=== PATIENT | female | born 1950 | race Caucasian/White ===

== ENCOUNTER 2024-10-15 09:55 | Inpatient (IN) | payer MEDICARE, MEDICAID, SELFPAY ==
[2024-10-15] VITALS (34 sets, daily range): BP systolic 99–125; BP diastolic 59–93; PULSE 81–106; TEMP 36.4–37.2; O2SAT 91–99; BMI 48.1; BMI 45.4
--- NOTE | 2024-10-15 10:35 | ECG_ITS ---
[facility] Test Date: 2024-10-15 Pat Name: MARILY SOTO Department: Room: - Gender: Female Network Announcer: : 1950 Requested By: [id number] Order Number: [id number] Reading MD: ADITYA POWER M.D. Measurements Intervals Morgan Rate: 87 P: 39 SC: 174 QRS: 24 QRSD: 86 T: 49 QT: 346 QTc: 391 Interpretive Statements 1100 Sinus rhythm 4068 Nonspecific Twave abnormality 9130 borderline ECG ARTIFACT IN LEAD(S) No previous ECG available for comparison Electronically Signed On 10-16-2024 6:24:59 EST by ADITYA POWER M.D.
--- NOTE | 2024-10-15 10:39 | ED.GENADUL1 ---
HPI HPI - General Adult General Chief complaint: Fall Stated complaint: FALL Time Seen by Provider: 10/15/24 09:57 Source: patient Mode of arrival: ambulance History of Present Illness HPI narrative: Patient presents to the ED after a fall. She states she was at her assisted living facility and she was trying to reach for her towel and gather all her stuff for the bathroom when she lost her footing and fell onto her left side. She said she hit her head against the wall. No loss of consciousness. She complains of left hip pain and left knee pain as well as left wrist pain. She does report that she has pain to the left side of her head but no loss of consciousness. EMS reported that the patient said she had gotten dizzy prior to the fall but the patient states she was not dizzy prior to the fall. Patient denies any chest pain or shortness of breath. She is alert and oriented answering questions appropriately. Patient states she has chronic arthritis and does have joint pain as well but this seems worse since her fall. Related Data Home Medications ?Medication ?Instructions ?Recorded ?Confirmed acetaminophen 325 mg capsule 650 mg PO Q6H PRN fever or pain 10/15/24 10/15/24 aspirin 81 mg capsule 81 mg PO DAILY 10/15/24 10/15/24 atenolol 25 mg tablet 25 mg PO DAILY 10/15/24 10/15/24 cholecalciferol (vitamin D3) 50 50 mcg PO DAILY 10/15/24 10/15/24 mcg (2,000 unit) tablet (D3 DOTS) duloxetine 60 mg capsule,delayed 60 mg PO DAILY 10/15/24 10/15/24 release (Cymbalta) furosemide 20 mg tablet 20 mg PO DAILY 10/15/24 10/15/24 isosorbide mononitrate 30 mg 30 mg PO DAILY 10/15/24 10/15/24 tablet,extended release 24 hr lidocaine 4 % topical patch 1 patch topical DAILY PRN pain 10/15/24 10/15/24 (Lidocaine Pain Relief) losartan 25 mg tablet (Cozaar) 25 mg PO DAILY 10/15/24 10/15/24 metformin 500 mg tablet 500 mg PO DAILY 10/15/24 10/15/24 miconazole nitrate 2 % topical 1 applic topical BID 10/15/24 10/15/24 cream (Antifungal (miconazole)) multivitamin (Daily Multi-Vitamin 1 tab PO DAILY 10/15/24 10/15/24 tablet) nitroglycerin 0.4 mg sublingual 0.4 mg sublingual Q5M 10/15/24 10/15/24 tablet oxybutynin chloride 10 mg 10 mg PO DAILY 10/15/24 10/15/24 tablet,extended release 24 hr rosuvastatin 10 mg tablet (Crestor) 10 mg PO DAILY 10/15/24 10/15/24 spironolactone 25 mg tablet 25 mg PO DAILY 10/15/24 10/15/24 (Aldactone) Allergies Allergy/AdvReac Type Severity Reaction Status Date / Time naproxen Allergy Severe Rash Verified 10/15/24 10:03 Penicillins Allergy Severe Rash Verified 10/15/24 10:03 Opioid HPI Opioid Management Most Recent Opioid Data: No Data to Display Review of Systems ROS Status of ROS 10 or more systems reviewed and unremarkable except as noted in history and below PFSH PFSH Social History Little interest or pleasure in doing things: not at all Feeling down, depressed, or hopeless: not at all Exam Narrative Exam Narrative: Time Seen: [] Vital Signs: [Per nurse's notes.] General: [Alert] mild distress due to pain in the left leg Skin: [Warm, dry, no rash.] Head: [Normocephalic, hematoma on the left parietal region of the scalp Neck: [Supple, trachea midline.] Eye: [Pupils are equal, round and reactive to light, extraocular movements are intact, normal conjunctiva.] Ears, nose, mouth and throat: oral mucosa moist. Cardiovascular: [Regular rate and rhythm, no murmur.] Respiratory: [Lungs are clear to auscultation, respirations are non-labored, breath sounds are equal.] Chest wall: [No tenderness, no deformity.] Gastrointestinal: [Soft, nontender, non distended, normal bowel sounds.] MSK: 5 out of 5 muscle strength x 4 extremities no calf pain or edema. Patient has chronic skin changes in the lower extremities due to poor circulation. Patient has tenderness to palpation in the left hip left distal femur and left knee. Mild tenderness to the left wrist. Lymphatics: [No lymphadenopathy.] Psychiatric: [Cooperative, appropriate mood & affect.] Neurological: [Alert and oriented to person, place, time, and situation, no focal neurological deficit observed.] Constitutional Vital Signs, click to edit/add: Last Vital Signs Temp 98.9 F 10/15/24 09:57 Pulse 90 10/15/24 10:20 Resp 18 10/15/24 10:20 BP 125/93 H 10/15/24 10:04 Pulse Ox 96 10/15/24 10:20 O2 Del Method Room Air 10/15/24 09:57 Course Vital Signs Vital signs: Vital Signs Temperature 98.9 F 10/15/24 09:57 Pulse Rate 92 H 10/15/24 09:57 Respiratory Rate 22 H 10/15/24 09:57 Blood Pressure 99/63 10/15/24 09:57 Pulse Oximetry 97 10/15/24 09:57 Oxygen Delivery Method Room Air 10/15/24 09:57 Temperature 98.9 F 10/15/24 09:57 Pulse Rate 90 10/15/24 10:20 Respiratory Rate 18 10/15/24 10:20 Blood Pressure 125/93 H 10/15/24 10:04 Pulse Oximetry 96 10/15/24 10:20 Oxygen Delivery Method Room Air 10/15/24 09:57 Medical Decision Making MDM Narrative Medical decision making narrative: Patient CT scan shows left pubic rami fractures. Patient is currently only in assisted living at her facility and will definitely need increased level of care now. She also had dizziness prior to her fall and she has had a lot of pain in her hip and leg since the fall. Patient will be admitted for pain control evaluation of the dizziness as well as case management consultation to most likely increase her level of care at a rehab facility. Patient is comfortable with care plan for admission. Dr. Jacques will be admitting. Patient is stable in ED. Differential Diagnosis Differential Diagnosis: Fracture sprain strain bleed syncope Medical Records Medical records reviewed: Yes I reviewed the patient's medical records Lab Data Lab results reviewed: Yes I reviewed the patient's lab results Labs: Lab Results 10/15/24 Range/Units 10:43 WBC 13.5 H (4.0-11.0) 10^3/uL RBC 4.37 (4.20-5.40) 10^6/uL Hgb 13.4 (12.0-16.0) g/dL Hct 41.2 (36.0-48.0) % MCV 94.3 (81.0-99.0) fL MCH 30.7 (26.7-34.0) pg MCHC 32.5 (29.9-35.2) g/dL RDW 13.4 (11.0-15.0) % Plt Count 276 (150-450) 10^3/uL MPV 8.6 L (9.5-13.5) fL Neut % (Auto) 82.2 H (43.0-75.0) % Lymph % (Auto) 8.5 L (20.5-60.0) % Bowman % (Auto) 6.1 (1.7-12.0) % Eos % (Auto) 1.9 (0.9-7.0) % Baso % (Auto) 0.7 (0.2-2.0) % Neut # (Auto) 11.1 H (1.4-6.5) 10^3/uL Lymph # (Auto) 1.2 (1.2-3.8) 10^3/uL Bowman # (Auto) 0.8 (0.3-0.8) 10^3/uL Eos # (Auto) 0.3 (0.0-0.7) 10^3/uL Baso # (Auto) 0.1 (0.0-0.1) 10^3/uL Abs Immat Gran (auto) 0.08 H (0.00-0.03) 10^3/uL Imm/Tot Granulo (auto) 0.6 H (0.0-0.5) % Sodium 141 (136-145) mmol/L Potassium 4.1 (3.5-5.1) mmol/L Chloride 104 (98-107) mmol/L Carbon Dioxide 25.5 (21.0-32.0) mmol/L Anion Gap 15.6 BUN 16.0 (7.0-18.0) mg/dL Creatinine 1.01 (0.55-1.02) mg/dL Est GFR ( Amer) >60 (>=60 mL/min/1.73m^2) Est GFR (Non-Af Amer) 53 L (>=60 mL/min/1.73m^2) BUN/Creatinine Ratio 15.8 Glucose 103 (74-106) mg/dL Calcium 10.0 (8.5-10.1) mg/dL Total Bilirubin 1.0 (0.2-1.0) mg/dL AST 19 (15-37) U/L ALT 11 L (14-59) U/L Alkaline Phosphatase 101 (46-116) U/L Troponin I High Sens 7.3 (4.0-51.3) pg/mL Total Protein 7.6 (6.4-8.2) g/dL Albumin 3.4 (3.4-5.0) g/dL Globulin 4.2 g/dL Albumin/Globulin Ratio 0.[address] scan - head: Attestation: I have reviewed the pertinent imaging results. ECG Data Attestation: I personally reviewed and interpreted this ECG as follows: Interpretation: EKG INTERPRETATION Time: [] 1003 Rate: [] 87 Rhythm: _ [] Sinus rhythm ST segments: _ [] No acute ST elevation or depression T waves: _ [] Ectopy: _ [] P wave/UT interval: _ [] QRS interval: _ [] QT interval: _ [] Comparison: _ [] Comparison EKG date: [] Performed by: [self] Discharge Plan Discharge Chief Complaint: Fall Clinical Impression: Closed fracture of pubic ramus, Fall, Dizziness Patient Disposition: Admitted As Inpatient Time of Disposition Decision: 13:29 Condition: Fair Prescriptions / Home Meds: No Action acetaminophen 325 mg capsule 650 mg PO Q6H PRN (Reason: fever or pain) miconazole nitrate [Antifungal (miconazole)] 2 % cream 1 applic topical BID aspirin 81 mg capsule 81 mg PO DAILY atenolol 25 mg tablet 25 mg PO DAILY duloxetine [Cymbalta] 60 mg capsule,delayed release(DR/EC) 60 mg PO DAILY furosemide 20 mg tablet 20 mg PO DAILY isosorbide mononitrate 30 mg tablet extended release 24 hr 30 mg PO DAILY lidocaine [Lidocaine Pain Relief] 4 % adhesive patch,medicated 1 patch topical DAILY PRN (Reason: pain) losartan [Cozaar] 25 mg tablet 25 mg PO DAILY metformin 500 mg tablet 500 mg PO DAILY multivitamin [Daily Multi-Vitamin] Tablet 1 tab PO DAILY nitroglycerin 0.4 mg tablet, sublingual 0.4 mg sublingual Q5M Rx Instructions: do not exceed 3 doses per episode oxybutynin chloride 10 mg tablet extended release 24hr 10 mg PO DAILY rosuvastatin [Crestor] 10 mg tablet 10 mg PO DAILY spironolactone [Aldactone] 25 mg tablet 25 mg PO DAILY cholecalciferol (vitamin D3) [D3 DOTS] 50 mcg (2,000 unit) tablet 50 mcg PO DAILY Print Language: Romansh Referrals: MARISELA SANCHEZ [Primary Care Provider] - 1 week
[2024-10-15 10:50] LABS: Basophils Absolute Auto 0.1 10^3/uL (0.0-0.1); Basophils Percent Auto 0.7 % (0.2-2.0); Eosinophils Absolute Auto 0.3 10^3/uL (0.0-0.7); Eosinophils Percent Auto 1.9 % (0.9-7.0); Hematocrit 41.2 % (36.0-48.0); Hemoglobin 13.4 g/dL (12.0-16.0); Immature Granulocytes Abs Auto 0.08 10^3/uL (0.00-0.03); Immature Granulocytes Pct Auto 0.6 % (0.0-0.5); Lymphocytes Absolute Auto 1.2 10^3/uL (1.2-3.8); Lymphocytes Percent Auto 8.5 % (20.5-60.0); Mean Corpuscular HGB Conc 32.5 g/dL (29.9-35.2); Mean Corpuscular Hemoglobin 30.7 pg (26.7-34.0); Mean Corpuscular Volume 94.3 fL (81.0-99.0); Mean Platelet Volume 8.6 fL (9.5-13.5); Monocytes Absolute Auto 0.8 10^3/uL (0.3-0.8); Monocytes Percent Auto 6.1 % (1.7-12.0); Neutrophils Absolute Auto 11.1 10^3/uL (1.4-6.5); Neutrophils Percent Auto 82.2 % (43.0-75.0); Platelet Count 276 10^3/uL (150-450); Red Blood Count 4.37 10^6/uL (4.20-5.40); Red Cell Distribution Width 13.4 % (11.0-15.0); White Blood Count 13.5 10^3/uL (4.0-11.0)
[2024-10-15] MEDS: MORPHINE SULFATE 4 MG/ML VIAL IV ×2 (10:51→14:30)
[2024-10-15] MEDS: 0.9 % SODIUM CHLORIDE 500 ML IV (10:51)
[2024-10-15 11:10] LABS: Alanine Aminotransferase 11 U/L (14-59); Albumin Globulin Ratio 0.8; Albumin Level 3.4 g/dL (3.4-5.0); Alkaline Phosphatase 101 U/L (46-116); Anion Gap 15.6; Aspartate Amino Transferase 19 U/L (15-37); BUN Creatinine Ratio 15.8; Carbon Dioxide 25.5 mmol/L (21.0-32.0); Chloride 104 mmol/L (98-107); Estimated GFR (African America >60 (>=60 mL/min/1.73m^2); Estimated GFR (Non-African Ame 53 (>=60 mL/min/1.73m^2); Globulin 4.2 g/dL; Glucose 103 mg/dL (74-106); Potassium 4.1 mmol/L (3.5-5.1); Sodium 141 mmol/L (136-145); Total Protein 7.6 g/dL (6.4-8.2)
[2024-10-15 11:13] LABS: Troponin I High Sensitivity 7.3 pg/mL (4.0-51.3)
--- NOTE | 2024-10-15 12:56 | PC.NURSE ---
telegraphic typewriter operator and another RN assisted pt onto bedpan at this time. pt was able to urinate. daughter at bedside. Skin care completed, and new brief placed.
--- NOTE | 2024-10-15 13:06 | SWNOTE1 ---
GILMAR received a call from ED. Pt lives at [facility]. This is an assisted living facility. Dr. Jacques is asking ED doctor if we could increase her level of care at [place]. GILMAR did advise that [place] is like her home, it is not a snf. Many AL's do have different levels of care, but she has to be fairly independent to live in an AL. SW to call and let ED doctor know. GILMAR called 3 x and left a message for the computer systems security administrator, waiting for call back.
--- NOTE | 2024-10-15 13:15 | SWNOTE1 ---
GILMAR spoke with Rica at the [facility] and she stated pt is receiving the highest level of care, which is the advanced level. SW called ED doctor and updated her.
--- NOTE | 2024-10-15 15:05 | PC.NURSE ---
pt aware of admission and roomassignment. pt and daughter deny needs prior to admission. pt transported by this RN to [facility] 202. bedside report given to Maggie RO, all questions answered.
--- NOTE | 2024-10-15 17:55 | P.HP_ITS ---
HPI H&P: HPI History of Present Illness Chief complaint: FALL, PELVIC FRACTURES, DIZZINESS, FALL Narrative: Patient was seen and evaluated in the emergency room after a fall, she had a near syncopal event. Describes some spinning type dizziness but more tunnel vision type dizziness as well this was twice upon once upon standing the other time not on the Can you she was on the floor, in the emergency room found to have pubic ramus fracture but also significant lactic acidosis and leukocytosis, workup for causes ongoing Opioid HPI Opioid Management Most Recent Pain and Opioid Data: Last Pain Scale 4 10/15/24 17:50 10/15/24 Last Pain Assessment 10/15/24 17:50 Last MAR Pain Assessment 10/15/24 14:30 Last ORT Total Score 0 10/15/24 15:02 10/15/24 Last ORT Risk Category Low Risk 10/15/24 15:02 10/15/24 PFS PFS Medical History (Updated 10/15/24 @ 15:48 by Maggie Ortiz) Anxiety ?F41.9 - Anxiety disorder, unspecified (ICD-10) History of broken nose ?Z87.81 - Personal history of (healed) traumatic fracture (ICD-10) Hypertension ?I10 - Essential (primary) hypertension (ICD-10) Arthritis ?M19.90 - Unspecified osteoarthritis, unspecified site (ICD-10) Surgical History (Updated 10/15/24 @ 15:48 by Maggie Ortiz) Rotator cuff arthropathy of left shoulder ?M12.812 - Other specific arthropathies, not elsewhere classified, left shoulder (ICD-10) 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 - Other specified disorders of the skin and subcutaneous tissue (ICD- 10) H/O heart artery stent ?Z95.5 - Presence of coronary angioplasty implant and graft (ICD-10) Hernia of abdominal wall ?K43.9 - Ventral hernia without obstruction or gangrene (ICD-10) Family History (Updated 10/15/24 @ 15:37 by Maggie Ortiz) Father Family history of myocardial infarction Mother Family history of diabetes mellitus Social History (Updated 10/15/24 @ 15:47 by Maggie Ortiz) Within the past year, how often did you have a drink containing alcohol: never Score interpretation: A score less than 3 is consistent with normal alcohol consumption. Smoking status: Former smoker Non-prescribed substance use: denies use Previous occupational history: retired Highest level of school completed/degree received: some college, no degree Are you now , , , , never or living with a partner: Little interest or pleasure in doing things: not at all Feeling down, depressed, or hopeless: not at all Feel stressed/tense/nervous/anxious/difficulty sleeping: only a little Meds Home Medications and Allergies Home Medications ?Medication ?Instructions ?Recorded ?Confirmed ?Type acetaminophen 325 mg capsule 650 mg PO Q6H PRN fever or pain 10/15/24 10/15/24 History acetaminophen 650 mg 650 mg PO DAILY 10/15/24 10/15/24 History tablet,extended release (Tylenol Arthritis Pain) aspirin 81 mg chewable tablet 1 tab PO DAILY 10/15/24 10/15/24 History atenolol 25 mg tablet 25 mg PO DAILY 10/15/24 10/15/24 History cholecalciferol (vitamin D3) 25 25 mcg PO DAILY 10/15/24 10/15/24 History mcg (1,000 unit) tablet duloxetine 60 mg capsule,delayed 60 mg PO DAILY 10/15/24 10/15/24 History release (Cymbalta) furosemide 20 mg tablet 20 mg PO DAILY 10/15/24 10/15/24 History isosorbide mononitrate 30 mg 30 mg PO DAILY 10/15/24 10/15/24 History tablet,extended release 24 hr lidocaine 4 % topical patch 1 patch topical DAILY 10/15/24 10/15/24 History (Lidocaine Pain Relief) losartan 25 mg tablet (Cozaar) 25 mg PO DAILY 10/15/24 10/15/24 History metformin 500 mg tablet,extended 500 mg PO DAILY 10/15/24 10/15/24 History release 24 hr miconazole nitrate 2 % topical 1 applic topical BID 10/15/24 10/15/24 History cream (Antifungal (miconazole)) multivitamin (Daily Multi-Vitamin 1 tab PO DAILY 10/15/24 10/15/24 History tablet) nitroglycerin 0.4 mg sublingual 0.4 mg sublingual Q5M PRN chest 10/15/24 10/15/24 History tablet pain oxybutynin chloride 10 mg 10 mg PO DAILY 10/15/24 10/15/24 History tablet,extended release 24 hr rosuvastatin 10 mg tablet (Crestor) 10 mg PO DAILY 10/15/24 10/15/24 History spironolactone 25 mg tablet 25 mg PO DAILY 10/15/24 10/15/24 History (Aldactone) Allergies Allergy/AdvReac Type Severity Reaction Status Date / Time naproxen Allergy Severe Rash Verified 10/15/24 10:03 Penicillins Allergy Severe Rash Verified 10/15/24 10:03 Exam Constitutional Vital Signs, click to edit/add: Last Vital Signs Temp 98.7 F 10/15/24 15:02 Pulse 84 10/15/24 15:02 Resp 20 10/15/24 15:02 BP 111/59 10/15/24 15:02 Pulse Ox 95 10/15/24 15:02 O2 Del Method Room Air 10/15/24 15:02 Documenting provider has reviewed patient's vital signs: yes Common normals: no apparent distress Lymph Lymphatic: no lymphadenopathy noted Respiratory Common normals: normal respiratory effort and clear to auscultation bilaterally Cardio Common normals: regular rate and regular rhythm Extremity Common normals: normal to inspection Results Labs Labs: Short CBC 10/15/24 Range/Units 10:43 WBC 13.5 H (4.0-11.0) 10^3/uL Hgb 13.4 (12.0-16.0) g/dL Hct 41.2 (36.0-48.0) % Plt Count 276 (150-450) 10^3/uL BMP 10/15/24 10:43 Sodium 141 Potassium 4.1 Chloride 104 Carbon Dioxide 25.5 BUN 16.0 Creatinine 1.01 Glucose 103 Calcium 10.0 Liver Function 10/15/24 Range/Units 10:43 Total Bilirubin 1.0 (0.2-1.0) mg/dL AST 19 (15-37) U/L ALT 11 L (14-59) U/L Alkaline Phosphatase 101 (46-116) U/L Albumin 3.4 (3.4-5.0) g/dL Assessment and Plan Assessment and Plan (1) Dizziness: (2) Fall: (3) Closed fracture of pubic ramus: Plan Admission findings: Sinus tachycardia, respiratory distress, leukocytosis, positive lactic acidosis, other testing for flu and heart failure and urinalysis are pending as causes for the lactic acidosis which is resulted in syncope Lactic acidosis-uncertain etiology, possible acute UTI resulting in the syncopal episode-urinalysis is pending, will treat if positive Syncopal episode-telemetry, consider carotid Dopplers and echocardiogram depending on how she feels overnight tonight Pubic ramus fracture-weightbearing as tolerated-will need placement for rehab pending outcome of the treatment and evaluation for the lactic acidosis Hypertension-continue with home medications Depression-continue with home medications Coronary artery disease-continue with home medications Diabetes mellitus-insulin sliding scale Admission status: Patient with syncopal episode and significant lactic acidosis and leukocytosis, workup is ongoing, medically necessary treatment will span 2 midnights, inpatient status
[2024-10-15 18:53] LABS: Lactate/Lactic Acid 2.6 mmol/L (0.4-2.0)
[2024-10-15] MEDS: TRAMADOL HCL 50 MG TABLET PO (19:56)
[2024-10-15 20:02] LABS: Glucometer 113 mg/dL (74-106)
[2024-10-16] VITALS (22 sets, daily range): BP systolic 108–124; BP diastolic 67–78; PULSE 70–95; TEMP 36.3–36.8; O2SAT 86–97
[2024-10-16] MEDS: NYSTATIN 100,000 UNITS/GRAM CREAM 15 GM TUBE 1 APPLIC TOPICAL ×3 (01:15→21:25)
[2024-10-16] MEDS: MORPHINE SULFATE 2 MG/ML SYRINGE IV ×2 (01:17→21:24)
[2024-10-16] MEDS: ONDANSETRON PF 4 MG/2 ML VIAL IV (01:17)
[2024-10-16] MEDS: TRAMADOL HCL 50 MG TABLET PO ×3 (03:16→16:07)
[2024-10-16 05:26] LABS: Basophils Absolute Auto 0.1 10^3/uL (0.0-0.1); Basophils Percent Auto 0.7 % (0.2-2.0); Eosinophils Absolute Auto 0.4 10^3/uL (0.0-0.7); Eosinophils Percent Auto 4.1 % (0.9-7.0); Hematocrit 37.4 % (36.0-48.0); Hemoglobin 12.2 g/dL (12.0-16.0); Immature Granulocytes Abs Auto 0.03 10^3/uL (0.00-0.03); Immature Granulocytes Pct Auto 0.3 % (0.0-0.5); Lymphocytes Absolute Auto 1.2 10^3/uL (1.2-3.8); Lymphocytes Percent Auto 12.9 % (20.5-60.0); Mean Corpuscular HGB Conc 32.6 g/dL (29.9-35.2); Mean Corpuscular Hemoglobin 30.7 pg (26.7-34.0); Mean Platelet Volume 8.9 fL (9.5-13.5); Monocytes Percent Auto 10.1 % (1.7-12.0); Neutrophils Absolute Auto 6.8 10^3/uL (1.4-6.5); Neutrophils Percent Auto 71.9 % (43.0-75.0); Platelet Count 248 10^3/uL (150-450); Red Blood Count 3.98 10^6/uL (4.20-5.40); Red Cell Distribution Width 13.6 % (11.0-15.0); White Blood Count 9.4 10^3/uL (4.0-11.0)
[2024-10-16 05:39] LABS: Anion Gap 12.6; Calcium 9.3 mg/dL (8.5-10.1); Carbon Dioxide 26.7 mmol/L (21.0-32.0); Chloride 102 mmol/L (98-107); Estimated GFR (African America >60 (>=60 mL/min/1.73m^2); Estimated GFR (Non-African Ame 54 (>=60 mL/min/1.73m^2); Glucose 111 mg/dL (74-106); Potassium 4.3 mmol/L (3.5-5.1); Sodium 137 mmol/L (136-145)
--- NOTE | 2024-10-16 06:38 | P.PN_ITS ---
Progress Note: Subjective Subjective Interval history: Pain up some - now with hypoxia Exam Constitutional Vital Signs, click to edit/add: Last Vital Signs Temp 98.2 F 10/16/24 03:56 Pulse 76 10/16/24 06:00 Resp 20 10/16/24 03:56 BP 114/71 10/16/24 03:56 Pulse Ox 94 L 10/16/24 06:00 O2 Del Method Nasal Cannula 10/16/24 03:56 O2 Flow Rate 1 10/16/24 03:56 Documenting provider has reviewed patient's vital signs: yes Common normals: no apparent distress Lymph Lymphatic: no lymphadenopathy noted Respiratory Common normals: normal respiratory effort, no retractions and clear to auscultation bilaterally Cardio Common normals: regular rate, regular rhythm and no murmurs Extremity Common normals: normal to inspection Progress Note: Objective Labs Labs: Short CBC 10/15/24 10/16/24 Range/Units 10:43 04:49 WBC 13.5 H 9.4 (4.0-11.0) 10^3/uL Hgb 13.4 12.2 (12.0-16.0) g/dL Hct 41.2 37.4 (36.0-48.0) % Plt Count 276 248 (150-450) 10^3/uL BMP 10/15/24 10/16/24 10:43 04:49 Sodium 141 137 Potassium 4.1 4.3 Chloride 104 102 Carbon Dioxide 25.5 26.7 BUN 16.0 14.0 Creatinine 1.01 1.00 Glucose 103 111 H Calcium 10.0 9.3 Liver Function 10/15/24 Range/Units 10:43 Total Bilirubin 1.0 (0.2-1.0) mg/dL AST 19 (15-37) U/L ALT 11 L (14-59) U/L Alkaline Phosphatase 101 (46-116) U/L Albumin 3.4 (3.4-5.0) g/dL Progress Note: A&P Assessment and Plan (1) Dizziness: (2) Fall: (3) Closed fracture of pubic ramus: Plan Admission findings: Sinus tachycardia, respiratory distress, leukocytosis, positive lactic acidosis, other testing for flu and heart failure and urinalysis are pending as causes for the lactic acidosis which is resulted in syncope Lactic acidosis-uncertain etiology, possible acute UTI resulting in the syncopal episode-urinalysis is still pending, will treat if positive Acute hypoxia - likely related to narcotics - d/c those - Syncopal episode-telemetry, consider carotid Dopplers and echocardiogram depending on how she feels overnight tonight - no more events Pubic ramus fracture-weightbearing as tolerated-will need placement for rehab pending outcome of the treatment and evaluation for the lactic acidosis Hypertension-continue with home medications Depression-continue with home medications Coronary artery disease-continue with home medications Diabetes mellitus-insulin sliding scale Admission status: Patient with syncopal episode and significant lactic acidosis and leukocytosis, workup is ongoing, medically necessary treatment will span 2 midnights, inpatient status Urinary Catheter Management Urinary Catheter Management Pure Wick: Cath placed during this visit: no
[2024-10-16 07:32] LABS: Glucometer 118 mg/dL (74-106)
[2024-10-16 07:45] LABS: Bilirubin Urine NEGATIVE (NEGATIVE); Blood Urine NEGATIVE (NEGATIVE); Clarity Urine CLEAR (CLEAR); Color Urine YELLOW (YELLOW); Glucose Urine UA NEGATIVE (NEGATIVE); Ketones Urine 15 mg/dL (NEGATIVE); Leukocyte Esterase Urine SMALL (NEGATIVE); Nitrite Urine NEGATIVE (NEGATIVE); Protein Urine NEGATIVE (NEG/TRACE); Urobilinogen Urine 0.2 EU/dL (0.2-1.0); pH Urine 5.5 (5.0-9.0)
[2024-10-16 07:54] LABS: Bacteria Urine TRACE #/HPF (NONE SEEN); RBC Urine NONE SEEN #/HPF (0-2)
[2024-10-16 07:55] LABS: Cast Seen? NONE SEEN #/LPF (NONE SEEN); Crystals Seen? None Seen #/HPF (None Seen); Mucus Urine NONE SEEN (NONE SEEN); Squamous Epithelial Cell Urine FEW #/LPF (NONE/RARE); Urine Culture Indicated NO
--- NOTE | 2024-10-16 08:55 | CM.NOTE ---
Rounds made with Dr. Jacques, discussed with pt findings and plan of care. Pt continues to c/o pain, Dr. Jacques will readjust pain medications. No discharge today.
[2024-10-16] MEDS: ACETAMINOPHEN 325 MG TABLET 650 MG PO (09:15)
[2024-10-16] MEDS: ATORVASTATIN CALCIUM 40 MG TABLET PO (09:16)
[2024-10-16] MEDS: ASPIRIN 81 MG TAB.CHEW PO (09:16)
[2024-10-16] MEDS: ATENOLOL 25 MG TABLET PO (09:16)
[2024-10-16] MEDS: FUROSEMIDE 20 MG TABLET PO (09:17)
[2024-10-16] MEDS: DULOXETINE HCL 60 MG CAPSULE.DR PO (09:17)
[2024-10-16] MEDS: CHOLECALCIFEROL (VITAMIN D3) 25 MCG/1,000 UNITS TABLET PO (09:17)
[2024-10-16] MEDS: ISOSORBIDE MONONITRATE 30 MG TAB.ER.24H PO (09:17)
[2024-10-16] MEDS: LOSARTAN POTASSIUM 25 MG TABLET PO (09:17)
[2024-10-16] MEDS: SPIRONOLACTONE 25 MG TABLET PO (09:18)
[2024-10-16] MEDS: MULTIVITAMIN TABLET 1 TAB PO (09:18)
[2024-10-16] MEDS: METFORMIN HCL 500 MG TAB.ER.24H PO (09:18)
[2024-10-16] MEDS: OXYBUTYNIN CHLORIDE 5 MG TAB XL 10 MG PO (09:18)
[2024-10-16] MEDS: LIDOCAINE 5% PATCH 1 PATCH TOPICAL (09:21)
--- NOTE | 2024-10-16 09:55 | SWNOTE1 ---
GILMAR had email from Trinidad at [facility] office on Aging. Pt is current with there services. GILMAR udpated her on plan for patient and her admission date and diagnosis.
--- NOTE | 2024-10-16 10:30 | CM.NOTE ---
Discussed with pt about recommendations from PT and skilled therapy at discharge. Pt requesting to go to [facility] for skilled. SW updated on pt's choice for skilled.
[2024-10-16 11:12] LABS: Glucometer 120 mg/dL (74-106)
--- NOTE | 2024-10-16 11:30 | SWNOTE1 ---
SW spoke to case management and pt would like [facility] for rehab as she has been there in the past. SW called and spoke to Pushpa at [facility] and they do have openings. Referral sent to [facility]. Referral included face sheet, ED note, H&P, provider notes, case management report, nursing notes, diagnostic imaging, med list, and OT notes.
--- NOTE | 2024-10-16 11:45 | CM.NOTE ---
Important Message From [employer] discussed with pt, pt verbalizes understanding and signs paper. Original given to pt and copy placed on pt's chart.
--- NOTE | 2024-10-16 12:07 | SWNOTE1 ---
Pushpa at [facility] emailed SW and stated they can accept, but they are waiting to hear about another referral if she is coming or not. They only have 1 bed available and it would be first come first serve. She will update GILMAR as soon as she knows.
[2024-10-16 16:11] LABS: Glucometer 108 mg/dL (74-106)
[2024-10-16 20:09] LABS: Glucometer 114 mg/dL (74-106)
[2024-10-17] VITALS (17 sets, daily range): BP systolic 95–126; BP diastolic 57–85; PULSE 70–93; TEMP 36.5–37; O2SAT 93–97
[2024-10-17] MEDS: TRAMADOL HCL 50 MG TABLET PO ×2 (02:07→12:01)
[2024-10-17 05:11] LABS: Basophils Absolute Auto 0.1 10^3/uL (0.0-0.1); Basophils Percent Auto 0.8 % (0.2-2.0); Eosinophils Absolute Auto 0.3 10^3/uL (0.0-0.7); Eosinophils Percent Auto 2.2 % (0.9-7.0); Hematocrit 37.5 % (36.0-48.0); Hemoglobin 12.1 g/dL (12.0-16.0); Immature Granulocytes Abs Auto 0.04 10^3/uL (0.00-0.03); Immature Granulocytes Pct Auto 0.3 % (0.0-0.5); Lymphocytes Absolute Auto 1.2 10^3/uL (1.2-3.8); Lymphocytes Percent Auto 10.1 % (20.5-60.0); Mean Corpuscular HGB Conc 32.3 g/dL (29.9-35.2); Mean Corpuscular Hemoglobin 30.2 pg (26.7-34.0); Mean Corpuscular Volume 93.5 fL (81.0-99.0); Mean Platelet Volume 8.9 fL (9.5-13.5); Monocytes Absolute Auto 1.2 10^3/uL (0.3-0.8); Monocytes Percent Auto 10.3 % (1.7-12.0); Neutrophils Absolute Auto 8.8 10^3/uL (1.4-6.5); Neutrophils Percent Auto 76.3 % (43.0-75.0); Platelet Count 199 10^3/uL (150-450); Red Blood Count 4.01 10^6/uL (4.20-5.40); Red Cell Distribution Width 13.5 % (11.0-15.0); White Blood Count 11.6 10^3/uL (4.0-11.0)
[2024-10-17 05:22] LABS: Anion Gap 12.7; BUN Creatinine Ratio 13.5; Calcium 9.3 mg/dL (8.5-10.1); Carbon Dioxide 26.5 mmol/L (21.0-32.0); Chloride 100 mmol/L (98-107); Estimated GFR (African America >60 (>=60 mL/min/1.73m^2); Estimated GFR (Non-African Ame >60 (>=60 mL/min/1.73m^2); Glucose 120 mg/dL (74-106); Potassium 4.2 mmol/L (3.5-5.1); Sodium 135 mmol/L (136-145)
--- NOTE | 2024-10-17 06:23 | P.PN_ITS ---
Progress Note: Subjective Subjective Interval history: pain better today No episodes of lightheadedness. Exam Constitutional Vital Signs, click to edit/add: Last Vital Signs Temp 98.1 F 10/17/24 04:00 Pulse 86 10/17/24 05:58 Resp 18 10/17/24 04:00 BP 124/85 10/17/24 04:00 Pulse Ox 94 L 10/17/24 05:58 O2 Del Method Room Air 10/17/24 04:00 O2 Flow Rate 1 10/16/24 23:59 Documenting provider has reviewed patient's vital signs: yes Common normals: no apparent distress HENOK Common normals: normocephalic Lymph Lymphatic: no lymphadenopathy noted Chest Common normals: inspection of chest normal Respiratory Common normals: normal respiratory effort and clear to auscultation bilaterally Cardio Common normals: no JVD, regular rate, regular rhythm and S1 normal heart sound Extremity Common normals: normal to inspection Progress Note: Objective Labs Labs: Short CBC 10/17/24 Range/Units 04:46 WBC 11.6 H (4.0-11.0) 10^3/uL Hgb 12.1 (12.0-16.0) g/dL Hct 37.5 (36.0-48.0) % Plt Count 199 (150-450) 10^3/uL BMP 10/17/24 04:46 Sodium 135 L Potassium 4.2 Chloride 100 Carbon Dioxide 26.5 BUN 12.0 Creatinine 0.89 Glucose 120 H Calcium 9.3 Urine 10/16/24 Range/Units 07:25 Urine Color Yellow (YELLOW) Urine Clarity Clear (CLEAR) Urine pH 5.5 (5.0-9.0) Ur Specific [place] 1.020 (1.005-1.025) Urine Protein Negative (NEG/TRACE) mg/dL Urine Glucose (UA) Negative (NEGATIVE) mg/dL Progress Note: A&P Assessment and Plan (1) Dizziness: (2) Fall: (3) Closed fracture of pubic ramus: Plan Admission findings: Sinus tachycardia, respiratory distress, leukocytosis, positive lactic acidosis, other testing for flu and heart failure and urinalysis are pending as causes for the lactic acidosis which is resulted in syncope, leading to sepsis - not severe due to UTI sepsis with lactic acidosis due to UTI-on antibiotics currently, white blood cell count is up slightly today, culture pending Acute hypoxia - likely related to narcotics - d/c those -, oxygen saturation is improved, see if we can taper off of that today Syncopal episode-telemetry, consider carotid Dopplers and echocardiogram depending on how she feels overnight tonight - no more events Pubic ramus fracture-weightbearing as tolerated-will need placement for rehab pending outcome of the treatment and evaluation for the lactic acidosis Hypertension-continue with home medications Depression-continue with home medications Coronary artery disease-continue with home medications Diabetes mellitus-insulin sliding scale Admission status: Patient with syncopal episode and significant lactic acidosis and leukocytosis, workup is ongoing, medically necessary treatment will span 2 midnights, inpatient status Urinary Catheter Management Urinary Catheter Management Pure Wick: Cath placed during this visit: yes Urethral indwelling: No Insertion date: 10/16/24 Insertion time: 13:00
[2024-10-17] MEDS: CEFDINIR 300 MG CAPSULE 600 MG PO ×2 (06:42→08:45)
[2024-10-17 07:46] LABS: Glucometer 112 mg/dL (74-106)
--- NOTE | 2024-10-17 08:36 | CM.NOTE ---
Rounds made with Dr. Jacques. Plan of care reviewed with Breanna per Dr. Jacques. No discharge today.
[2024-10-17] MEDS: ISOSORBIDE MONONITRATE 30 MG TAB.ER.24H PO (08:44)
[2024-10-17] MEDS: CHOLECALCIFEROL (VITAMIN D3) 25 MCG/1,000 UNITS TABLET PO (08:44)
[2024-10-17] MEDS: METFORMIN HCL 500 MG TAB.ER.24H PO (08:44)
[2024-10-17] MEDS: ASPIRIN 81 MG TAB.CHEW PO (08:44)
[2024-10-17] MEDS: LIDOCAINE 5% PATCH 1 PATCH TOPICAL (08:44)
[2024-10-17] MEDS: OXYBUTYNIN CHLORIDE 5 MG TAB XL 10 MG PO (08:45)
[2024-10-17] MEDS: LOSARTAN POTASSIUM 25 MG TABLET PO (08:45)
[2024-10-17] MEDS: ATENOLOL 25 MG TABLET PO (08:45)
[2024-10-17] MEDS: SPIRONOLACTONE 25 MG TABLET PO (08:45)
[2024-10-17] MEDS: DULOXETINE HCL 60 MG CAPSULE.DR PO (08:45)
[2024-10-17] MEDS: FUROSEMIDE 20 MG TABLET PO (08:45)
[2024-10-17] MEDS: ATORVASTATIN CALCIUM 40 MG TABLET PO (08:45)
[2024-10-17] MEDS: MULTIVITAMIN TABLET 1 TAB PO (08:45)
[2024-10-17] MEDS: NYSTATIN 100,000 UNITS/GRAM CREAM 15 GM TUBE 1 APPLIC TOPICAL ×2 (08:46→21:06)
[2024-10-17 11:27] LABS: Glucometer 125 mg/dL (74-106)
[2024-10-17] MEDS: ACETAMINOPHEN 500 MG TABLET 1000 MG PO ×2 (12:04→21:09)
--- NOTE | 2024-10-17 12:10 | SWNOTE1 ---
GILMAR reached out to Pushpa at [facility] and advised that GILMAR needs to know if pt will have a bed tomorrow when she is ready for discharge? Pushpa stated at this time nothing has changed and she will let GILMAR know if something changes. SW to reach back out later this afternoon. GILMAR completed HENS.
--- NOTE | 2024-10-17 13:34 | SWNOTE1 ---
SW received email from Pushpa at [facility] and they will be ready for pt when she is medically stable for discharge. SW to set up transport for tomorrow in case she is stable tomorrow and if not, then nursing can cancel.
--- NOTE | 2024-10-17 13:54 | PT.DAILY ---
Physical Therapy Daily Note PT Daily Note/Assess Start: 10/17/24 13:41 Freq: Status: Active Protocol: Document 10/17/24 13:41 LIV (Rec: 10/17/24 13:54 LIV [id number]) Physical Therapy Daily Note/Assessment Time In/Time Out Time In 13:05 Time Out 10:35 Pain In Pain N/A Pain Out Pain N/A Subjective Subjective Pt supine upon arrival. Agreeable to PT. Fearful to fall. Therapeutic Exercise Time Therapeutic Exercise 4 Minutes (minutes) Therapeutic Exercise 0 Units Therapeutic Exercise Treatment Therapeutic Exercise Seated AP and LAQ 10x Treatment Unwilling to attempt marches - fearful of falling Therapeutic Activity Time Therapeutic Activity 10 Minutes (minutes) Therapeutic Activity 1 Units Therapeutic Activity Treatment Bed Mobility Ability Maximum Assist,2 Person Assist Therapeutic Activity Supine>sit maxA+2 to advance upper body and lower body Comments to sit EOB. Unable to sit EOB without at least 1 UE support to maintain balance due to R lateral and posterior lean. Pt able to shift weight side to side with vc / tactile cues for proper technique with also Aaron to maintain balance. In total sits EOB 12 min. Sit >supine MaxA+2. total assist of 2 to scoot up in bed. MaxA to roll to R side to place pillow under left hip. Remains supine with call light in reach and needs met Total Physical Therapy Time Total Therapy 14 Minutes Total Physical 1 Therapy Units Summary Daily Note Summary Cont to need heavy assistance for bed mobility. Unable to sit EOB unsupported due to poor trunk control.
--- NOTE | 2024-10-17 14:56 | SWNOTE1 ---
SW stopped in and spoke with pt and she would like to use ambulance for transport. GILMAR called and set up [facility] transport for 13:00 on 10/18/24. [facility] is aware of time. SW notified nurse as well. Packet on med/surge floor. SW completed HENS as well. SW let pt know time of discharge and she will let family know. Pt is going skilled to [facility]. GILMAR advised nurse to cancel [facility] if pt is not medically stable tomorrow for discharge.
[2024-10-17 16:33] LABS: Glucometer 132 mg/dL (74-106)
[2024-10-17 21:06] LABS: Glucometer 110 mg/dL (74-106)
[2024-10-17] MEDS: CAPSAICIN 0.025% CREAM 60 GM TUBE 1 APPLIC TOPICAL (21:07)
[2024-10-18] VITALS (13 sets, daily range): BP systolic 113–117; BP diastolic 69–71; PULSE 72–83; TEMP 36.4–36.7; O2SAT 95–97
[2024-10-18 06:17] LABS: Basophils Absolute Auto 0.1 10^3/uL (0.0-0.1); Basophils Percent Auto 0.9 % (0.2-2.0); Eosinophils Absolute Auto 0.5 10^3/uL (0.0-0.7); Eosinophils Percent Auto 6.3 % (0.9-7.0); Hemoglobin 11.4 g/dL (12.0-16.0); Immature Granulocytes Abs Auto 0.03 10^3/uL (0.00-0.03); Immature Granulocytes Pct Auto 0.4 % (0.0-0.5); Lymphocytes Absolute Auto 1.1 10^3/uL (1.2-3.8); Lymphocytes Percent Auto 14.3 % (20.5-60.0); Mean Corpuscular HGB Conc 31.7 g/dL (29.9-35.2); Mean Corpuscular Hemoglobin 30.4 pg (26.7-34.0); Mean Platelet Volume 9.2 fL (9.5-13.5); Monocytes Percent Auto 12.2 % (1.7-12.0); Neutrophils Absolute Auto 5.2 10^3/uL (1.4-6.5); Neutrophils Percent Auto 65.9 % (43.0-75.0); Platelet Count 193 10^3/uL (150-450); Red Blood Count 3.75 10^6/uL (4.20-5.40); Red Cell Distribution Width 13.6 % (11.0-15.0); White Blood Count 7.9 10^3/uL (4.0-11.0)
[2024-10-18] MEDS: ACETAMINOPHEN 500 MG TABLET 1000 MG PO (06:17)
[2024-10-18] MEDS: CAPSAICIN 0.025% CREAM 60 GM TUBE 1 APPLIC TOPICAL (06:18)
[2024-10-18 06:22] LABS: Anion Gap 10.6; BUN Creatinine Ratio 11.5; Carbon Dioxide 29.4 mmol/L (21.0-32.0); Chloride 104 mmol/L (98-107); Estimated GFR (African America >60 (>=60 mL/min/1.73m^2); Estimated GFR (Non-African Ame >60 (>=60 mL/min/1.73m^2); Glucose 98 mg/dL (74-106); Sodium 140 mmol/L (136-145)
[2024-10-18] MEDS: LIDOCAINE 5% PATCH 1 PATCH TOPICAL (09:48)
[2024-10-18] MEDS: CEFDINIR 300 MG CAPSULE 600 MG PO (09:48)
[2024-10-18] MEDS: ASPIRIN 81 MG TAB.CHEW PO (09:48)
[2024-10-18] MEDS: LOSARTAN POTASSIUM 25 MG TABLET PO (09:48)
[2024-10-18] MEDS: ISOSORBIDE MONONITRATE 30 MG TAB.ER.24H PO (09:49)
[2024-10-18] MEDS: OXYBUTYNIN CHLORIDE 5 MG TAB XL 10 MG PO (09:49)
[2024-10-18] MEDS: ATORVASTATIN CALCIUM 40 MG TABLET PO (09:49)
[2024-10-18] MEDS: FUROSEMIDE 20 MG TABLET PO (09:49)
[2024-10-18] MEDS: MULTIVITAMIN TABLET 1 TAB PO (09:49)
[2024-10-18] MEDS: METFORMIN HCL 500 MG TAB.ER.24H PO (09:49)
[2024-10-18] MEDS: SPIRONOLACTONE 25 MG TABLET PO (09:49)
[2024-10-18] MEDS: TRAMADOL HCL 50 MG TABLET PO (09:49)
[2024-10-18] MEDS: ATENOLOL 25 MG TABLET PO (09:49)
[2024-10-18] MEDS: DULOXETINE HCL 60 MG CAPSULE.DR PO (09:49)
[2024-10-18] MEDS: CHOLECALCIFEROL (VITAMIN D3) 25 MCG/1,000 UNITS TABLET PO (09:50)
[2024-10-18] MEDS: NYSTATIN 100,000 UNITS/GRAM CREAM 15 GM TUBE 1 APPLIC TOPICAL (09:50)
--- NOTE | 2024-10-18 10:32 | PT.DAILY ---
Physical Therapy Daily Note PT Daily Note/Assess Start: 10/17/24 13:41 Freq: Status: Active Protocol: Document 10/18/24 10:21 [id number] (Rec: 10/18/24 10:32 [id number]) Physical Therapy Daily Note/Assessment Time In/Time Out Time In 09:26 Time Out 09:45 Pain In Pain Level 0 Pain Out Pain Level 0 Subjective Subjective Patient received supine in bed and reluctantly agrees to participate with PT. States she thinks she is leaving today. Therapeutic Exercise Time Therapeutic Exercise 5 Minutes (minutes) Therapeutic Exercise 0 Units Therapeutic Exercise Treatment Therapeutic Exercise Patient perform ther ex in supine for ankle pumps, quad Treatment /glut sets x 10 reps. Patient verbalizes discomfort to L hip with glut sets. Patient performed ther ex seated EOB for ankle pumps and LAQ's x 10 reps. All ther ex to increase COOKIE LE for strengthening. Therapeutic Activity Time Therapeutic Activity 14 Minutes (minutes) Therapeutic Activity 1 Units Therapeutic Activity Treatment Bed Mobility Ability Maximum Assist,2 Person Assist Therapeutic Activity Bed mobility: supine to R sitting EOB is MAX A +2 for Comments upper body and lower body advancement. Patient does initiate assist by using UE to reach for R bed rail and then to push up on the mattress to scoot to EOB. Patient sat EOB ~10 minutes. Initially patient was leaning 100% on bed which had been elevated, slowly lowered HOB to reduce patients reliance for support. Able to lower HOB flat and patient is able to hold self upright with minimal R UE support. Patient is MAX +2 for transfer: sitting to R side lying to supine. Verbal cues to use R LE to assist with sliding patient up towards HOB. Patient positioned with pillows under COOKIE LE and UE for support. CBWR and patient left in care of nursing. Total Physical Therapy Time Total Therapy 19 Minutes Total Physical 1 Therapy Units Summary Daily Note Summary Patient is initiating assistance with bed mobility. Improved ability sit upright with less support. Patient is limited by L hip pain with functional movement. Patient would benefit from SNF placement to address functional deficit and for return to PLOF.
--- NOTE | 2024-10-18 11:36 | PM.DS1 ---
DS: Providers Provider Date of admission: 10/15/24 14:44 Primary care physician: MARISELA SANCHEZ Admitting clinician: Yaya Jacques Attending physician on admission: Yaya Jacques Consults: 10/15/24 17:50 Occupational Therapy Eval and Treat Routine Reason for consultation: Only if needed for Rehab Has provider been notified: No Physical Therapy Eval and Treat Routine Reason for consultation: Eval and Treat Has provider been notified: No Attending physician on discharge: Shaikh Henry Discharging clinician: Shaikh Henry Anticipated date of discharge: 10/18/24 DS: Diagnosis Discharge Diagnosis (1) Dizziness: Assessment and plan: Likely due to dehydration and hypotension. Resolved. (2) Fall: Assessment and plan: PT/OT evaluation. Will go to SNF Qualifiers: Encounter type: subsequent encounter Qualified Code(s): W19.XXXD - Unspecified fall, subsequent encounter (3) Closed fracture of pubic ramus: Assessment and plan: Conservative management. Pain control. Will go to SNF for PT/OT Qualifiers: Encounter type: subsequent encounter Fracture healing: with routine healing Laterality: left Qualified Code(s): S32.592D - Other specified fracture of left pubis, subsequent encounter for fracture with routine healing (4) Lactic acid acidosis: Assessment and plan: Due to dehydration. Resolved. (5) Leukocytosis: Assessment and plan: Due to dehydration and UTI. Result. Qualifiers: Leukocytosis type: leukemoid reaction Qualified Code(s): D72.823 - Leukemoid reaction (6) Hypertension: Assessment and plan: Blood pressure is. Okay to resume patient's oral medication. Qualifiers: Hypertension type: primary hypertension Qualified Code(s): I10 - Essential (primary) hypertension (7) HLD (hyperlipidemia): Assessment and plan: Continue with Crestor. Qualifiers: Hyperlipidemia type: unspecified Qualified Code(s): E78.5 - Hyperlipidemia, unspecified DS: Summary Hospital Course Hospital Course: 74-year-old female presented to ED with generalized weakness, fall and presyncopal episode. Workup revealed leukocytosis, dehydration, lactic acidosis and possible UTI. Patient was treated with IV hydration and empirically treated for UTI. Patient was evaluated by PT/OT. Patient was also found to have inferior and superior left pubic rami fracture. Severe arthritic changes on x-ray. Patient medically stable for discharge with improvement in leukocytosis, lactic acidosis. Will need oral cefdinir for UTI. Patient approved for SNF for continued PT/OT. Follow-up with PCP 1 to 2 weeks Time Spent with Patient Time attestation: Total time spent providing and/or coordinating discharge services: Exam Constitutional Vital Signs, click to edit/add: Last Vital Signs Temp 98.0 F 10/18/24 07:23 Pulse 74 10/18/24 09:49 Resp 18 10/18/24 09:49 BP 113/71 10/18/24 07:23 Pulse Ox 96 10/18/24 11:17 O2 Del Method Nasal Cannula 10/18/24 11:17 O2 Flow Rate 1 10/18/24 11:17 Documenting provider has reviewed patient's vital signs: yes Common normals: no apparent distress and oriented x3 General appearance: cooperative Respiratory Common normals: normal respiratory effort and clear to auscultation bilaterally Effort & inspection: able to speak in complete sentences Auscultation: clear to auscultation bilaterally Cardio Common normals: regular rate, S1 normal heart sound and S2 normal heart sound Rate: regular rate Heart sounds: S1 normal and S2 normal Extremity Common normals: no clubbing, cyanosis or edema Neuro Common normals: oriented x3, moves all extremities and no focal motor deficits Psych Common normals: mental status grossly normal, denies hallucinations, denies homicidal ideation and denies suicidal ideation DS: Data Data Completed and Pending Labs on day of discharge: Labs from last 24 hours 10/18/24 10/17/24 10/17/24 05:44 21:05 16:32 WBC 7.9 RBC 3.75 L Hgb 11.4 L Hct 36.0 MCV 96.0 MCH 30.4 MCHC 31.7 RDW 13.6 Plt Count 193 MPV 9.2 L Neut % (Auto) 65.9 Lymph % (Auto) 14.3 L Schley % (Auto) 12.2 H Eos % (Auto) 6.3 Baso % (Auto) 0.9 Neut # (Auto) 5.2 Lymph # (Auto) 1.1 L Schley # (Auto) 1.0 H Eos # (Auto) 0.5 Baso # (Auto) 0.1 Abs Immat Gran (auto) 0.03 Imm/Tot Granulo (auto) 0.4 Sodium 140 Potassium 4.0 Chloride 104 Carbon Dioxide 29.4 Anion Gap 10.6 BUN 10.0 Creatinine 0.87 Est GFR ( Amer) >60 Est GFR (Non-Af Amer) >60 BUN/Creatinine Ratio 11.5 Glucose 98 Calcium 9.0 POC Glucose 110 H 132 H Discharge Plan Discharge Disposition: Xfer [facility] Condition: Fair Discharge Medications: Continued acetaminophen 325 mg capsule 650 mg PO Q6H PRN (Reason: fever or pain) miconazole nitrate [Antifungal (miconazole)] 2 % cream 1 applic topical BID Patient Comments: apply to abdominal folds atenolol 25 mg tablet 25 mg PO DAILY duloxetine [Cymbalta] 60 mg capsule,delayed release(DR/EC) 60 mg PO DAILY furosemide 20 mg tablet 20 mg PO DAILY isosorbide mononitrate 30 mg tablet extended release 24 hr 30 mg PO DAILY lidocaine [Lidocaine Pain Relief] 4 % adhesive patch,medicated 1 patch topical DAILY Rx Instructions: apply to right arm/shoulder on in the am off at bedtime losartan [Cozaar] 25 mg tablet 25 mg PO DAILY multivitamin [Daily Multi-Vitamin] Tablet 1 tab PO DAILY nitroglycerin 0.4 mg tablet, sublingual 0.4 mg sublingual Q5M PRN (Reason: chest pain) Rx Instructions: do not exceed 3 doses per episode oxybutynin chloride 10 mg tablet extended release 24hr 10 mg PO DAILY rosuvastatin [Crestor] 10 mg tablet 10 mg PO DAILY spironolactone [Aldactone] 25 mg tablet 25 mg PO DAILY acetaminophen [Tylenol Arthritis Pain] 650 mg tablet extended release 650 mg PO DAILY aspirin 81 mg tablet,chewable 1 tab PO DAILY metformin 500 mg tablet extended release 24 hr 500 mg PO DAILY cholecalciferol (vitamin D3) 25 mcg (1,000 unit) tablet 25 mcg PO DAILY Print Language: Belarusian Forms: Portal Instructions Follow Up Appointments: f/u with PCP in one week
--- NOTE | 2024-10-20 09:17 | SWNOTE1 ---
GILMAR faxed discharge summary over to Trinidad at [facility] for continuity of care.
== END 2024-10-18 12:15 | DRG 872 ==
LOC: ER 13:31 → MS 14:49
PROVIDERS: Admitting Provider Family Medicine; Emergency Provider Emergency Medicine; Visit Provider Internal Medicine
DX: A41.9 Sepsis, unspecified organism (principal); S32.592A Other specified fracture of left pubis, initial encounter for closed fracture; N39.0 Urinary tract infection, site not specified; E86.0 Dehydration; I10 Essential (primary) hypertension; E78.5 Hyperlipidemia, unspecified; M25.532 Pain in left wrist; M25.562 Pain in left knee; F32.A Depression, unspecified; I25.10 Atherosclerotic heart disease of native coronary artery without angina pectoris; E11.9 Type 2 diabetes mellitus without complications; W19.XXXA Unspecified fall, initial encounter; Y92.099 Unspecified place in other non-institutional residence as the place of occurrence of the external cause; Z79.82 Long term (current) use of aspirin; Z79.899 Other long term (current) drug therapy; Z88.0 Allergy status to penicillin; Z88.6 Allergy status to analgesic agent; Z95.5 Presence of coronary angioplasty implant and graft; Z87.891 Personal history of nicotine dependence; Z79.84 Long term (current) use of oral hypoglycemic drugs
CPT/HCPCS: 36415; 70450; 71045; 72192; 73110; 73552; 73562; 80048; 80053; 81001; 82948; 83605; 84484; 85025; 93005; 94667; 94668; 94761; 96361; 96374; 96376; 97163; 97165; 97530; 99285; J2270; J2405